=== PATIENT | female | born 1960 | race Caucasian/White ===

== ENCOUNTER 2024-04-28 17:32 | Emergency (ER) | payer OTHER ==
[~2024-04-28] VITALS: Ht 167.6 cm; Wt 75.0 kg
[2024-04-28 18:06] VITALS: TEMP 98.1
[2024-04-28 22:00] VITALS: BP 112/62; PULSE 68; RESP 17; O2SAT 95
[2024-04-28] MEDS: HYDROCORTISONE 1% 30 GM OINTMENT TP ONE (22:05)
[2024-04-28] MEDS: DiphenhydrAMINE HCL 25 MG CAPSULE PO ONE (22:05)
[2024-04-28] MEDS ORDERED: TRI115O TP (22:07)
== END 2024-04-28 23:50 | disposition home or self-care (01) ==
LOC: EMS 17:32
DX: R21 Rash and other nonspecific skin eruption (principal); Z85.118 Personal history of other malignant neoplasm of bronchus and lung
CPT/HCPCS: 99283